=== PATIENT | female | born 1955 | race American Indian/Alaskan Native ===

== ENCOUNTER 2018-03-31 06:02 | Emergency (ER) | payer BC ==
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
[2018-03-31 06:52] VITALS: RESP 18
[2018-03-31 07:03] LABS: MEAN CELL VOLUME 83.6 fl (80.0-105.0); MEAN CORPUSCULAR HEMOGLOBIN 29.8 pg (25.0-35.0); MEAN CORPUSCULAR HGB CONC 35.6 g/dl (31.0-37.0); MEAN PLATELET VOLUME 10.3 fl (7.0-11.0); RBC 5.37 10^6/uL (3.5-6.1); RED CELL DISTRIBUTION WIDTH 13.7 % (11.5-14.5); WHITE BLOOD COUNT 7.7 10^3/uL (4.5-11.0)
[2018-03-31 07:13] LABS: ALB/GLOB RATIO 1.2 (1.1-1.8); ALBUMIN 4.1 g/dL (3.0-4.8); ALT/SGPT 19 U/L (7-56); AST/SGOT 20 U/L (14-36); BLOOD UREA NITROGEN 14 mg/dL (7-21); CALCIUM 9.5 mg/dL (8.4-10.5); GFR NON-AFRICAN AMERICAN 56; INR 0.94; PARTIAL THROMBOPLASTIN TIME 30.3 Seconds (25.1-36.5); PROTHROMBIN TIME 10.8 SECONDS (9.4-12.5)
[2018-03-31 07:24] LABS: TROPONIN I < 0.01 ng/mL
--- NOTE | 2018-03-31 07:40 | ED PDOC ---
Physical Exam Vital Signs Reviewed: Yes Vital Signs Temp Pulse Resp BP Pulse Ox 03/31/18 06:52 98.0 F 87 18 136/93 H 97 Temperature: Afebrile Blood Pressure: Hypertensive Pulse: Regular Respiratory Rate: Normal Appearance: Positive for: Well-Appearing, Non-Toxic, Comfortable Pain Distress: None Mental Status: Positive for: Alert and Oriented X 3 Medical Decision Making ED Course and Treatment: 03/31/18 07:36 Case endorsed to me by Dr. Fuchs pending labs, CT, re-evaluation, and disposition. Patient denies any more symptoms, she says the symptoms were typical from her anxiety attacks. Her Fisher syncope score is 0. 03/31/18 07:46 CT of the brain without IV Contrast reviewed, shows: Dictator: Desmond Keys M.D. IMPRESSION: Normal unenhanced CT scan of the brain. Patient is stable for discharge. She was informed that she needs close PMD follow and to make an appointment with her hse advisor. She agreed to make sure she gets follow up. - Lab Interpretations Lab Results: 03/31/18 06:45 03/31/18 06:45 Lab Results 03/31/18 06:45: PT 10.8, INR 0.94, APTT 30.3 03/31/18 06:45: WBC 7.7, RBC 5.37, Hgb 16.0, Hct 44.9, MCV 83.6, MCH 29.8, MCHC 35.6, RDW 13.7, Plt Count 205, MPV 10.3 03/31/18 06:45: Sodium 142, Potassium 4.1, Chloride 110 H, Carbon Dioxide 23, Anion Gap 13, BUN 14, Creatinine 1.0, Est GFR ( Amer) > 60, Est GFR (Non- Af Amer) 56, Random Glucose 100, Calcium 9.5, Total Bilirubin 0.6, AST 20, ALT 19, Alkaline Phosphatase 77, Lactate Dehydrogenase 545, Total Creatine Kinase 107, Troponin I < 0.01, Total Protein 7.4, Albumin 4.1, Globulin 3.3, Albumin/Globulin Ratio 1.2 I have reviewed the lab results: Yes - RAD Interpretation Radiology Orders: 03/31/18 06:34 HEAD W/O CONTRAST [CT] Stat CHEST ONE VIEW [RAD] Stat - Scribe Statement The provider has reviewed the documentation as recorded by the Felicia Vargas Provider Scribe Attestation: All medical record entries made by the Felicia were at my direction and personally dictated by me. I have reviewed the chart and agree that the record accurately reflects my personal performance of the history, physical exam, medical decision making, and the department course for this patient. I have also personally directed, reviewed, and agree with the discharge instructions and disposition. Disposition/Present on Arrival - Present on Arrival Any Indicators Present on Arrival: No History of DVT/PE: No History of Uncontrolled Diabetes: No Urinary Catheter: No History of Decub. Ulcer: No History Surgical Site Infection Following: None - Disposition Have Diagnosis and Disposition been Completed?: Yes Diagnosis: Syncope, Anxiety Disposition: HOME/ ROUTINE Disposition Time: 07:52 Condition: IMPROVED Discharge Instructions (ExitCare): Vasovagal Response, Syncope (ED) Additional Instructions: ALEKSANDRA COYLE, thank you for letting us take care of you today. Your provider was Bobby García DO and you were treated for Syncopal Episode, Panic Attack. The emergency medical care you received today was directed at your acute symptoms. If you were prescribed any medication, please fill it and take as directed. It may take several days for your symptoms to resolve. Return to the Emergency Department if your symptoms worsen, do not improve, or if you have any other problems. Make sure to make an appointment also with a hse advisor please. Please contact your doctor or call one of the physicians/clinics you have been referred to that are listed on the Patient Visit Information form that is included in your discharge packet. Bring any paperwork you were given at discharge with you along with any medications you are taking to your follow up visit. Our treatment cannot replace ongoing medical care by a primary care provider outside of the emergency department. Thank you for allowing the [facility] [email or web address] team to be part of your care today. If you had an X-Ray or CT scan: A Radiologist will review the ED reading if any change in treatment is needed we will contact you. If you had a blood, urine, or wound culture: It will take several days for the results, if any change in treatment is needed we will contact you. If you had an STI test: It will take 48 hours for the results. Please call after 1 week if you have not heard back. Referrals: Nieves Troy MD [Primary Care Provider] - Follow up with primary Forms: [employer] ([place])
[2018-03-31 08:01] VITALS: BP 161/89; PULSE 82; TEMP 98.3; O2SAT 99
--- NOTE | 2018-03-31 08:15 | CT ---
Date of service: 03/31/2018 PROCEDURE: CT HEAD WITHOUT CONTRAST. HISTORY: syncope COMPARISON: None available. TECHNIQUE: Axial computed tomography images were obtained through the head/brain without intravenous contrast. Radiation dose: Total exam DLP = 841.85 mGy-cm. This CT exam was performed using one or more of the following dose reduction techniques: Automated exposure control, adjustment of the mA and/or kV according to patient size, and/or use of iterative reconstruction technique. FINDINGS: HEMORRHAGE: No intracranial hemorrhage. BRAIN: No mass effect or edema. No atrophy or chronic microvascular ischemic changes. VENTRICLES: Unremarkable. No hydrocephalus. CALVARIUM: Unremarkable. PARANASAL SINUSES: Unremarkable as visualized. No significant inflammatory changes. MASTOID AIR CELLS: Unremarkable as visualized. No inflammatory changes. OTHER FINDINGS: The report concurs with the preliminary [facility] report IMPRESSION: No acute intracranial findings
--- NOTE | 2018-03-31 10:08 | RAD ---
Date of service: 03/31/2018 PROCEDURE: CHEST RADIOGRAPH, 1 VIEW HISTORY: syncope COMPARISON: 08/16/2014 FINDINGS: LUNGS: Clear. PLEURA: No pneumothorax or pleural fluid seen. CARDIOVASCULAR: No aortic atherosclerotic calcification present. The heart is normal in size. There is mild aortic tortuosity OSSEOUS STRUCTURES: No significant abnormalities. VISUALIZED UPPER ABDOMEN: Normal. OTHER FINDINGS: None. IMPRESSION: No active disease.
--- NOTE | 2018-03-31 12:37 | CARD ---
APPROVED REPORT Date of service: 03/31/2018 EKG Measurement Heart [id number] <Conclusion> Normal sinus rhythm Normal ECG
== END 2018-03-31 08:00 | disposition home or self-care (01) ==
LOC: ED 06:02
DX: R55 Syncope and collapse (principal); F41.9 Anxiety disorder, unspecified